=== PATIENT | female | born 1970 | race Caucasian/White ===

== ENCOUNTER 2016-07-25 17:29 | Emergency (ER) | payer OTHER ==
[~2016-07-25] VITALS: Ht 157.5 cm; Wt 97.5 kg
[~2016-07-25 17:29] MED LIST: CITA20TA9; CYCL10TA2 PO
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
[2016-07-25] MEDS ORDERED: IV NORMAL SALINE 1000ML BAG 1,000 ML IV SCH (18:20)
[2016-07-25] MEDS ORDERED: DIPHTH,PERTUSS(ACELL),TET TOX 0.5 ML DISP.SYRIN. VAX IM ONE (18:30)
[2016-07-25] MEDS ORDERED: ONDANSETRON PF 4 MG/2 ML VIAL. IV ONE (18:30)
[2016-07-25 18:39] LABS: BILIRUBIN,URINE NEGATIVE (NEG); GLUCOSE,URINE NEGATIVE (NEG); NITRITE,URINE NEGATIVE (NEG); PROTEIN,URINE NEGATIVE (NEG-TRACE); UROBILINOGEN,URINE 0.2 mg/dL (0.2 mg/dL)
[2016-07-25 18:45] LABS: BARBITURATES NEG (NEG); BENZODIAZEPINES NEG (NEG); CANNABINOIDS NEG (NEG); COCAINE NEG (NEG); METHADONE NEG (NEG); OPIATES NEG (NEG); PHENCYCLIDINE NEG (NEG)
[2016-07-25] MEDS: fentaNYL PF VIAL 100 MCG/2 ML VIAL IV PRN ×2 (19:03→21:19)
[2016-07-25 19:05] LABS: BACTERIA,URINE FEW /HPF (0-FEW); RBC,URINE RARE /HPF (0-2); SQUAMOUS EPITHELIAL CELL,UR OCC /LPF; WBC,URINE OCC /HPF (0-4)
[2016-07-25 19:17] LABS: BASO # 0.1 x10^3/uL (0.0-0.2); BASO % 1 % (0-3); EOS % 2 % (0-3); HEMOGLOBIN 13.9 g/dL (12.0-15.5); LYMPH # 2.7 x10^3/uL (1.0-4.8); LYMPH % 20 % (24-48); MEAN CORPUSCULAR HEMOGLOBIN 30 pg (25-35); MEAN CORPUSCULAR HGB CONC 34 g/dL (31-37); MEAN CORPUSCULAR VOLUME 88 fL (79-100); MONO % 4 % (0-9); NEUT % 74 % (31-73); PLATELET COUNT 367 x10^3/uL (140-400); RED BLOOD COUNT 4.68 x10^6/uL (3.50-5.40); RED CELL DISTRIBUTION WIDTH 12.8 % (11.5-14.5)
[2016-07-25 19:40] LABS: PROTHROMBIN TIME PATIENT 12.7 SEC (11.7-14.0)
[2016-07-25 19:45] LABS: CALCIUM 9.2 mg/dL (8.5-10.1); CREATININE 0.7 mg/dL (0.6-1.0); GFR 90.9; POTASSIUM 3.7 mmol/L (3.5-5.1)
[2016-07-25 19:47] LABS: CREATINE KINASE 63 U/L (26-192)
[2016-07-25 19:48] LABS: CKMB MASS < 0.5 ng/mL (0.0-3.6)
[2016-07-25 19:50] LABS: ALBUMIN 4.2 g/dL (3.4-5.0); DIRECT BILIRUBIN 0.1 mg/dL (0.0-0.2); TOTAL BILIRUBIN 0.3 mg/dL (0.2-1.0); TOTAL PROTEIN 7.8 g/dL (6.4-8.2)
[2016-07-25 19:59] LABS: NEG OBC SER NEG; POS OBC SER POS
[2016-07-25] MEDS ORDERED: IOHEXOL 300 MG/ML 75 ML VIAL IV ONE (20:15)
[2016-07-25] MEDS ORDERED: CONTRAST GIVEN MC PRN (20:30)
[2016-07-25 21:00] VITALS: BP 124/67
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
[2016-07-25] MEDS ORDERED: HYDR-971 PO (22:49)
--- NOTE | 2016-07-26 08:31 | EKG ---
[facility] [address] [place] [address] Test Date: 2016-07-25 Test Time: 19:07:37 Pat Name: EZEQUIEL ORTIZ Department: Room: Gender: F Rn Internship: : 1970 Requested By: JAMEL VALADEZ Order Number: [id number] Reading MD: Miguel Sapp Measurements Intervals [place] Rate: 87 P: 16 NH: 134 QRS: 1 QRSD: 84 T: 7 QT: 430 QTc: 518 Interpretive Statements SINUS RHYTHM PROLONGED QT Electronically Signed On 07-30-2016 9:46:50 CDT by Miguel Sapp
--- NOTE | 2016-07-26 09:47 | RAD ---
Indications: Trauma. Pain. Two-view right forearm study: No acute fracture or dislocation or osteolytic process is seen. There are radiopaque foreign bodies of the medial aspect of the right wrist area. 3 view right hand study: There is a fracture of the proximal lateral corner of the fifth metacarpal bone with intra-articular extension. There is mild rotation of the fracture fragment with distraction of the articular surface of 1.4 mm. No dislocation or osteolytic process is seen. Radiopaque foreign bodies are seen involving the medial aspect of the right hand and the fifth digit. Two-view study left tibia and fibula: No acute fracture or dislocation or osteolytic process is seen. The mortise ankle joint and the medial malleolus and distal fibular epiphysis are not included in the AP projection. IMPRESSION: Acute posttraumatic fracture of the proximal fifth metacarpal bone of the right hand. Multiple radiopaque foreign bodies. Note-this report was called to the emergency room physician by myself at 9:44 AM on July 26, 2016 after my initial interpretation and dictation. No preliminary emergency room report was noted on the PACS system.
== END 2016-07-25 23:14 | disposition home or self-care (01) ==
LOC: ER 17:29
DX: S60.221A Contusion of right hand, initial encounter (principal); S20.219A Contusion of unspecified front wall of thorax, initial encounter; M79.662 Pain in left lower leg; M54.2 Cervicalgia; J45.909 Unspecified asthma, uncomplicated; F32.9 Major depressive disorder, single episode, unspecified; Z90.49 Acquired absence of other specified parts of digestive tract; Z90.710 Acquired absence of both cervix and uterus; Z88.2 Allergy status to sulfonamides; Z88.1 Allergy status to other antibiotic agents; V49.49XA Driver injured in collision with other motor vehicles in traffic accident, initial encounter; Y93.89 Activity, other specified; Y92.89 Other specified places as the place of occurrence of the external cause; Y99.8 Other external cause status
CPT/HCPCS: 36415; 70450; 71260; 72125; 73090; 73130; 73590; 74177; 80048; 80076; 80305; 80320; 81001; 82150; 82553; 83605; 83690; 84484; 84703; 85027; 85610; 85730; 86850; 86900; 86901; 90471; 90715; 93005; 96361; 96374; 96375; 96376; 99285; J2405; J3010; J7030; Q9967; G0480; G0481

== ENCOUNTER 2016-07-27 22:16 | Emergency (ER) | payer OTHER ==
[~2016-07-27 22:16] MED LIST changes: +HYDR-971 PO
[2016-07-27 22:29] VITALS: BP 152/78
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
== END 2016-07-27 23:25 | disposition home or self-care (01) ==
LOC: ER 22:16
DX: M25.561 Pain in right knee (principal); M79.641 Pain in right hand; M79.644 Pain in right finger(s); J45.909 Unspecified asthma, uncomplicated; Z88.1 Allergy status to other antibiotic agents; Z88.2 Allergy status to sulfonamides
CPT/HCPCS: 73562; 99284

== ENCOUNTER 2016-08-03 12:00 | Emergency (ER) | payer BC, OTHER ==
[~2016-08-03] VITALS: Ht 157.5 cm; Wt 101.2 kg
--- NOTE | 2016-08-03 12:34 | RAD ---
Indication cough. PA and lateral views of the chest were obtained and are compared to an examination 05/20/2008. The heart and pulmonary vessels appear normal. The lungs are clear. There is no pleural fluid or pneumothorax. The bony structures appear grossly intact. IMPRESSION: No acute or focal process is seen in the chest
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
[2016-08-03 13:00] VITALS: BP 131/82
[2016-08-03] MEDS ORDERED: HYDR115S2 PO (13:24)
[2016-08-03] MEDS ORDERED: CYCL10TA2 PO (13:24)
[2016-08-03] MEDS ORDERED: BENZ100C PO (13:24)
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
== END 2016-08-03 13:35 | disposition home or self-care (01) ==
LOC: ER 12:33
DX: S62.316D Displaced fracture of base of fifth metacarpal bone, right hand, subsequent encounter for fracture with routine healing (principal); S20.211D Contusion of right front wall of thorax, subsequent encounter; J45.909 Unspecified asthma, uncomplicated; Z90.710 Acquired absence of both cervix and uterus; Z90.49 Acquired absence of other specified parts of digestive tract; Z88.1 Allergy status to other antibiotic agents; Z88.2 Allergy status to sulfonamides; Z88.5 Allergy status to narcotic agent; V49.88XA Car occupant (driver) (passenger) injured in other specified transport accidents, initial encounter; Y93.89 Activity, other specified; Y99.8 Other external cause status; Y92.488 Other paved roadways as the place of occurrence of the external cause
CPT/HCPCS: 29125; 71020; 73130; 99284-25